=== PATIENT | male | born 1950 | race Caucasian/White ===

== ENCOUNTER 2021-11-14 21:22 | Observation (INO) | payer MEDICARE, OTHER, SELFPAY ==
[2021-11-14 21:24] VITALS: BP 147/75; PULSE 65; RESP 15; TEMP 36.9; O2SAT 85; BMI 41.2
[2021-11-14 21:31] VITALS: BMI 41.2
--- NOTE | 2021-11-14 21:35 | EKG12_ITS ---
Test Reason : DYSRHYTHMIA Blood Pressure : / mmHG Vent. Rate : 060 BPM Atrial Rate : 267 BPM P-R Int : 000 ms QRS Dur : 164 ms QT Int : 506 ms P-R-T Axes : 000 194 093 degrees QTc Int : 506 ms Ventricular-paced rhythm Abnormal ECG Confirmed by YANCI MARQUEZ, SASCHA ([id number]), brands editor YVROSE CLINTON ([id number]) on 11/16/2021 10:46:16 AM Referred By: GABBY Confirmed By:SASCHA PETE MD
--- NOTE | 2021-11-14 22:08 | CT_ITS ---
STUDY: CT BRAIN WITHOUT CONTRAST REASON FOR EXAM: Male, 71 years old. Altered mental status RADIATION DOSAGE (If Supplied By Facility): CTDIvol = ( 44.99 ) mGy, DLP = ( 846.73 ) mGycm TECHNIQUE: Transaxial CT imaging of the brain was performed without administration of intravenous contrast material. Individualized dose optimization techniques were used for this CT. COMPARISON: No relevant priors. FINDINGS: Normal soft tissue structures. Normal calvarium. There is mild cerebral atrophy with widening of the extra-axial spaces and ventricular dilatation. There are areas of decreased attenuation within the white matter tracts of the supratentorial brain, consistent with microvascular disease changes. Normal basal ganglia and thalami. Normal brainstem. There is mild cerebellar atrophy. There is no intracranial hemorrhage. There are no findings of an acute ischemic infarction. Normal visualized paranasal sinuses. CT/Brain/Head without Contrast IMPRESSION: Chronic involutional changes of the brain. Electronically Signed: Zenon Cheney DO at 23:17 EDT ,
--- NOTE | 2021-11-14 22:20 | RAD_ITS ---
STUDY: X-RAY CHEST REASON FOR EXAM: Male, 71 years old. cough TECHNIQUE: Single AP portable view of the chest. COMPARISON: None. FINDINGS: Right lung is clear. There is left lower lobe airspace disease with small effusion. There is mild cardiac enlargement. Normal mediastinum and rajinder. Normal visualized pulmonary arteries. Normal visualized aortic arch and descending thoracic aorta. Left chest wall pacing device Normal visualized thoracic spine. Normal visualized ribs, clavicles, and shoulders. There is no demonstrated abnormality of the visualized soft tissue structures of the upper abdomen. RAD/Chest 1 View (Portable) IMPRESSION: Left lower lobe airspace disease and small effusion Electronically Signed: Zenon Cheney DO at 22:47 EDT ,
[2021-11-14 22:39] LABS: Bacteria 0 SEEN /hpf (None Seen); Mucous, Urine 0 SEEN /hpf (<or=2+); Red Blood Cells-Urine 0 SEEN /hpf (0-5); Squamous Epithelial Cells - UA 0 SEEN /hpf (0-5); White Blood Cells 0 SEEN /hpf (0-5)
[2021-11-14 22:40] LABS: Absolute Lymphocyte Count 0.84 X10^3/uL (0.83-4.51); Absolute Neutrophil Count 6.5 X10^3/uL (2.0-7.7); Basophil# 0.05 X10^3/uL; Basophil% 0.6 % (0-1); Eosinophil# 0.08 X10^3/uL; Eosinophils% 0.9 % (0-5); Hematocrit 31.5 % (40-54); Hemoglobin 9.6 g/dL (13.0-16.5); Lymphocyte # 0.84 X10^3/ul (0.83-4.51); Lymphocyte % 9.9 % (19-41); Mean Corp Hgb Conc 30.5 g/dL (32-36); Mean Corpuscular Hgb 29.5 pg (27.0-32.0); Mean Corpuscular Volume 96.9 fL (80-94); Monocyte# 0.98 X10^3/uL; Monocyte% 11.6 % (0-10); NRBC Flagged by Analyzer 0 % (0-5); Neutrophil % 76.6 % (47-70); Platelet Count 196 K/mm3 (150-450); RBC Distribution Width CV 14.7 % (11.6-14.6); RBC Distribution Width SD 51.9 fl (35.1-43.9); Red Blood Count 3.25 M/mm3 (4.6-6.2); White Blood Count 8.5 K/mm3 (4.4-11.0)
[2021-11-14 22:54] LABS: Amphetamine Urine VISTA NEGATIVE (<1000 ng/mL); Barbiturate Urine VISTA NEGATIVE (< 200 ng/mL); Benzodiazepine Urine VISTA NEGATIVE (< 200 ng/mL); Cocaine Urine VISTA NEGATIVE (< 300 ng/mL); Ecstacy Urine VISTA NEGATIVE (< 500 ng/mL); Methadone Urine VISTA NEGATIVE (< 300 ng/mL); PCP Urine VISTA NEGATIVE (< 25 ng/mL); THC Urine VISTA NEGATIVE (< 50 ng/mL); Vista UDS pH Range 7
[2021-11-14 23:03] LABS: Color, Urine Yellow (Yellow); Glucose, Dipstick Normal (Normal); Ketone-Dipstick Negative (Negative); Leukocyte Esterase-Dipstick 25 /ul (Negative); Nitrite-Dipstick Negative (Negative); Occult Blood-Urine Negative /ul (Negative); Protein-Dipstick 100 mg/dl (Negative); Urine Bilirubin Dipstick Negative (Negative); Urine Clarity Clear (Clear); Urine Urobilinogen 4 mg/dl (Normal)
[2021-11-14 23:08] LABS: AST(SGOT) 32 U/L (15-37); Alanine Aminotransfer ALT/SGPT 15 U/L (16-61); Alkaline Phosphatase 108 U/L (45-117); Anion Gap 4 (5-15); BUN 27 mg/dL (7-18); BUN/Creat Ratio 18.5 RATIO (10-20); Bilirubin, Direct 0.56 mg/dL (0.00-0.30); Calcium,Total 9.7 mg/dL (8.5-10.1); Chloride 95 mmol/L (98-107); Creatinine, Serum 1.46 mg/dL (0.70-1.30); EST Glomerular Filtration Rate 51 mL/min (>60); Est Glom Filt Rate - Afr Amer 61 mL/min (>60); Estimated Creatinine Clearance 51.67 ml/min; Globulin 4.1 g/dL (2.2-4.2); Glucose 115 mg/dL (74-106); Potassium 4.4 mmol/L (3.5-5.1); Protein, Total 7.1 g/dL (6.4-8.2); Sodium Level 141 mmol/L (136-145); Thyroid Stim Hormone (TSH) 1.99 uIU/mL (0.358-3.74)
[2021-11-14 23:12] LABS: Lactic Acid 1.1 mmol/L (0.4-1.9)
[2021-11-14 23:23] VITALS: BP 135/90; PULSE 90; RESP 17; O2SAT 98
[2021-11-14 23:40] LABS: Acetaminophen (Tylenol) Level < 2.0 ug/mL (10.0-30.0); Salicylate < 1.7 mg/dL (2.8-20.0)
[2021-11-15] VITALS (9 sets, daily range): BP systolic 132–176; BP diastolic 67–105; PULSE 60–104; RESP 17–20; TEMP 36.4–37.1; O2SAT 93–98; BMI 40.8
--- NOTE | 2021-11-15 00:52 | EX.ED.DYSGE1 ---
HPI History of Present Illness Chief Complaint: Neuro S/Sx Narrative Narrative: Patient is a 71-year-old male with history of hypertension and diabetes. Reportedly EMS was called by the patient's son because he was just not acting right. The patient denies any fevers or chills or trauma. He denies any new medications or illicit drug use and states he quit drinking roughly 35 years ago. He does state that he has been having urinary frequency and difficulty holding his urine. Therefore with son's concern about altered mental status and possible infectious process he was brought in for evaluation [facility] Medical History (Updated 11/15/21 @ 01:[address] Nic Sheffield MD) Congestive heart failure (CHF) Diabetes Fibromyalgia Hypertension Home Medications allopurinol 300 mg tablet 1 tab PO DAILY gout 11/15/21 [History Last Taken Unknown] gabapentin 300 mg capsule 600 mg PO TID pain 11/15/21 [History Last Taken Unknown] levothyroxine 50 mcg tablet 50 mcg PO DAILY thyroid 11/15/21 [History Last Taken Unknown] metoprolol succinate 25 mg tablet,extended release 24 hr 25 mg PO DAILY blood pressure 11/15/21 [History Last Taken Unknown] modafinil 200 mg tablet 200 mg PO BID narcolepsy 11/15/21 [History Last Taken Unknown] omeprazole 40 mg capsule,delayed release 40 mg PO DAILY acid reflux 11/15/21 [History Last Taken Unknown] torsemide 100 mg tablet 100 mg PO DAILY water pill 11/15/21 [History Last Taken Unknown] warfarin 10 mg tablet 10 mg PO DAILY blood thinner 11/15/21 [History Last Taken Unknown] warfarin 2 mg tablet 2 tab PO DAILY BLOOD CLOTS SHOULDER/LEGS 11/15/21 [History Last Taken Unknown] Allergy/AdvReac Type Severity Reaction Status Date / Time adhesive tape Allergy PT UNSURE Verified 11/14/21 21:29 OF REACTION codeine Allergy PT UNSURE Verified 11/14/21 21:29 OF REACTION Social History Smoking Status: Former smoker ROS ROS ED Constitutional Constitutional ED: Denies chills or fever(s) ENT ENT ED: Denies sore throat Cardiovascular Cardiovascular: Denies chest pain Respiratory/Chest Respiratory/Chest: Denies cough or dyspnea Gastrointestinal Gastrointestinal: Denies abdominal pain, diarrhea, nausea or vomiting Genitourinary Genitourinary ED: Reports urinary frequency; Denies dysuria Musculoskeletal Musculoskeletal: Denies back pain, myalgias or neck pain Integumentary Denies rash Neurologic Neurologic: Denies headache(s) or paresthesias Hematologic/Lymphatic Hematologic/Lymphatic: Reports easy bleeding and easy bruising EXAM Physical Exam Const Vital Signs: 11/14/21 21:24 11/14/21 23:23 Temperature 98.4 F Temperature Source Temporal Pulse Rate 65 90 Respiratory Rate 15 17 Blood Pressure 147/75 H 135/90 H Blood Pressure Mean 99 105 Pulse Ox 85 98 Oxygen Delivery Method Room Air Room Air Positive well nourished, well developed and obese General Appearance ED: well developed Nutritional Appearance: obese HEENT Reports dry mucous membranes HEENT Narrative: No tongue or lip swelling no oral lesions no secondary changes in posterior pharynx to suggest infection Mouth ED: Yes dry mucous membranes Mouth: dry mucous membranes Eyes PERRL and EOMs intact bilaterally General Eye ED: Negative for scleral icterus Neck supple and no JVD Resp normal respiratory effort Resp Narrative: Breath sounds are diminished throughout with diffuse expiratory wheeze but no nasal flaring retractions tachypnea or accessory muscle use Cardio regular rate and regular rhythm Rate: other Other Details: Radial pulses are plus 2 out of 4 bilaterally are equal and symmetric GI non-tender and non-distended GI Narrative: No voluntary guarding or rigidity no pulsatile mass or fluid wave noted Auscultation: normoactive bowel sounds Palpation: soft Extremity Extremity Narrative: Patient has +1 pitting edema to the bilateral lower extremities that is equal and symmetric consistent with his history of heart failure. Negative Homans' sign bilaterally. Neuro oriented x3 and CN's II-XII intact bilaterally Sensorium / Orientation: alert Psych Psych Narrative: Patient has a flat affect Skin Skin Narrative: Skin turgor slightly increased MDM MDM MDM Narrative Medical decision making narrative: Patient was sent in to the ER for reported alteration of mental status. However upon arrival he is awake and alert to person place and time. He does not have any focal neurologic deficit. With this initial complaint from EMS and family as well as the patient reporting difficulty with urination there is concern he is got an infectious process and therefore a basic work-up was obtained with a head CT. Head CT revealed chronic age-related changes without acute bleed. Blood work revealed no clinically significant findings other than his ammonia level is approximately doubled in the upper limit of normal at 59. The patient is able to move his lower legs but he is unable to stand and walk and hold himself up even with assistance. Based on this he is not safe to return home. I discussed with patient that if he cannot walk he will need to be placed in a long term or rehab facility for physical therapy. The patient states he is agreeable to this. Therefore medicine was contacted and they do agree to accept the patient at this time with the possibility of placement based on the fact he has the inability to ambulate. Because of the elevated ammonia level he was given lactulose. The chest x-ray officially questioned a lung infection but the patient does not have a fever or white count and he has not been coughing or complaining of shortness of breath and therefore this is not clinically correlate so I would not start him on antibiotics at this time Lab Data Attestation: I reviewed the patient's lab results. Labs: Laboratory Results - last 24 hr 11/14/21 11/14/21 11/14/21 21:37 21:37 21:37 WBC 8.5 RBC 3.25 L Hgb 9.6 L Hct 31.5 L MCV 96.9 H MCH 29.5 MCHC 30.5 L RDW Std Deviation 51.9 H RDW Coeff of Nash 14.7 H Plt Count 196 MPV 11.0 Immature Gran % (Auto) 0.400 Neut % (Auto) 76.6 H Lymph % (Auto) 9.9 L [place] % (Auto) 11.6 H Eos % (Auto) 0.9 Baso % (Auto) 0.6 Absolute Neuts (auto) 6.5 Absolute Lymphs (auto) 0.84 Nucleated RBC % 0 Sodium 141 Potassium 4.4 Chloride 95 L Carbon Dioxide 42.0 H Anion Gap 4 L BUN 27 H Creatinine 1.46 H Estim Creat Clear Calc 51.67 Est GFR (MDRD) Af Amer 61 Est GFR (MDRD) Non-Af 51 L BUN/Creatinine Ratio 18.5 Glucose 115 H Lactic Acid Calcium 9.7 Total Bilirubin 1.30 H Direct Bilirubin 0.56 H AST 32 ALT 15 L Alkaline Phosphatase 108 Ammonia Total Protein 7.1 Albumin 3.0 L Globulin 4.1 TSH 1.99 Urine Color Urine Clarity Urine pH Ur Specific [place] Urine Protein Urine Glucose (UA) Urine Ketones Urine Occult Blood Urine Nitrite Urine Bilirubin Urine Urobilinogen Ur Leukocyte Esterase Urine RBC Urine WBC Ur Squamous Epith Cells Urine Bacteria Urine Mucus Salicylates < 1.7 L Urine Opiates Screen Urine Methadone Screen Acetaminophen < 2.0 L Ur Barbiturates Screen Ur Phencyclidine Scrn Ur Amphetamines Screen MDMA (Ecstasy) Screen U Benzodiazepines Scrn Urine Cocaine Screen U Cannabinoids Screen Ur Drug Screen Comment Ethyl Alcohol 4.0 11/14/21 11/14/21 11/14/21 22:20 22:20 22:25 WBC RBC Hgb Hct MCV MCH MCHC RDW Std Deviation RDW Coeff of [place] Plt Count MPV Immature Gran % (Auto) Neut % (Auto) Lymph % (Auto) [place] % (Auto) Eos % (Auto) Baso % (Auto) Absolute Neuts (auto) Absolute Lymphs (auto) Nucleated RBC % Sodium Potassium Chloride Carbon Dioxide Anion Gap BUN Creatinine Estim Creat Clear Calc Est GFR (MDRD) Af Amer Est GFR (MDRD) Non-Af BUN/Creatinine Ratio Glucose Lactic Acid 1.1 Calcium Total Bilirubin Direct Bilirubin AST ALT Alkaline Phosphatase Ammonia 59.0 H Total Protein Albumin Globulin TSH Urine Color Urine Clarity Urine pH Ur Specific [place] Urine Protein Urine Glucose (UA) Urine Ketones Urine Occult Blood Urine Nitrite Urine Bilirubin Urine Urobilinogen Ur Leukocyte Esterase Urine RBC Urine WBC Ur Squamous Epith Cells Urine Bacteria Urine Mucus Salicylates Urine Opiates Screen NEGATIVE Urine Methadone Screen NEGATIVE Acetaminophen Ur Barbiturates Screen NEGATIVE Ur Phencyclidine Scrn NEGATIVE Ur Amphetamines Screen NEGATIVE MDMA (Ecstasy) Screen NEGATIVE U Benzodiazepines Scrn NEGATIVE Urine Cocaine Screen NEGATIVE U Cannabinoids Screen NEGATIVE Ur Drug Screen Comment Ethyl Alcohol 11/14/21 22:25 WBC RBC Hgb Hct MCV MCH MCHC RDW Std Deviation RDW Coeff of [place] Plt Count MPV Immature Gran % (Auto) Neut % (Auto) Lymph % (Auto) [place] % (Auto) Eos % (Auto) Baso % (Auto) Absolute Neuts (auto) Absolute Lymphs (auto) Nucleated RBC % Sodium Potassium Chloride Carbon Dioxide Anion Gap BUN Creatinine Estim Creat Clear Calc Est GFR (MDRD) Af Amer Est GFR (MDRD) Non-Af BUN/Creatinine Ratio Glucose Lactic Acid Calcium Total Bilirubin Direct Bilirubin AST ALT Alkaline Phosphatase Ammonia Total Protein Albumin Globulin TSH Urine Color Yellow Urine Clarity Clear Urine pH 8.0 Ur Specific [place] 1.010 Urine Protein 100 H Urine Glucose (UA) Normal Urine Ketones Negative Urine Occult Blood Negative Urine Nitrite Negative Urine Bilirubin Negative Urine Urobilinogen 4 H Ur Leukocyte Esterase 25 H Urine RBC 0 SEEN Urine WBC 0 SEEN Ur Squamous Epith Cells 0 SEEN Urine Bacteria 0 SEEN Urine Mucus 0 SEEN Salicylates Urine Opiates Screen Urine Methadone Screen Acetaminophen Ur Barbiturates Screen Ur Phencyclidine Scrn Ur Amphetamines Screen MDMA (Ecstasy) Screen U Benzodiazepines Scrn Urine Cocaine Screen U Cannabinoids Screen Ur Drug Screen Comment Ethyl Alcohol Radiography Diagnostic Testing: Clinical Impression(s) from Imaging Studies Brain CT 11/14/21 22:08 IMPRESSION: Chronic involutional changes of the brain. Electronically Signed: Zenon Cheney DO at 23:17 EDT Reading Location ID and State: [facility] / [place] Tel , Service support , Chest X-Ray 11/14/21 22:20 IMPRESSION: Left lower lobe airspace disease and small effusion Electronically Signed: Zenon Cheney DO at 22:47 EDT , Chest x-ray as interpreted by the emergency medicine physician reveals a small effusion on the left without acute infiltrate pneumothorax or pleural effusion Discharge Plan Dx/Rx/DC Orders Clinical Impression: Hyperammonemia, Inability to walk Disposition Disposition: Acute Care Hospital [facility] Discharge Date/Time: 11/15/21 01:55
--- NOTE | 2021-11-15 01:00 | HP.PCM_ITS ---
HPI - General General Date of Admission: 11/15/21 Date of Service: 11/15/21 Chief Complaint: Generalized weakness HPI Narrative JHONY VASQUEZ, is a 71 M who presents to the emergency room from home due to worsening debility. Patient has a significant past medical history of congestive heart failure for which she went through rehabilitation in 2020 but subsequently has failed to keep up on his exercises and medical management. Over the past 2 months he has become progressively disabled at home and has been unable to bear weight. The patient does have a past medical history of alcohol abuse. His ammonia level is 60 and he does have a slightly detectable alcohol level despite the patient denying using any alcohol for 30 years. The patient denies chest pain, shortness of breath, fever or chills. He does have some lower extremity discomfort that is chronic. Patient will be admitted for observation and assessment by physical therapy for ambulation in the morning. He will need case management for discharge planning. [facility] Medical History (Updated 11/15/21 @ 01:[address] Nci Sheffield MD) Congestive heart failure (CHF) Diabetes Fibromyalgia Hypertension Home Medications Unobtainable 11/14/21 [History Last Taken Unknown] Allergy/AdvReac Type Severity Reaction Status Date / Time adhesive tape Allergy PT UNSURE Verified 11/14/21 21:29 OF REACTION codeine Allergy PT UNSURE Verified 11/14/21 21:29 OF REACTION Social History Smoking Status: Never smoker ROS Constitutional Constitutional: Denies chills or fever(s) Eyes Eyes: Denies blurry vision ENT HEENT: Denies abnormal hearing Cardiovascular Cardiovascular: Denies chest pain Respiratory/Chest Respiratory/Chest: Denies cough Gastrointestinal Gastrointestinal: Denies abdominal pain Genitourinary Genitourinary: Reports dysuria Musculoskeletal Musculoskeletal: Reports joint swelling and muscle weakness Integumentary Integumentary: Reports jaundice Neurologic Neurologic: Denies abnormal speech Psychiatric Psychiatric: Denies anxiety Vital Signs Vital Signs Vital Signs: 11/14/21 21:24 11/14/21 23:23 Temperature 98.4 F Temperature Source Temporal Pulse Rate 65 90 Respiratory Rate 15 17 Blood Pressure 147/75 H 135/90 H Blood Pressure Mean 99 105 Pulse Ox 85 98 Oxygen Delivery Method Room Air Room Air Weight Weight: 304 lb 0.279 oz Body Mass Index (BMI) 41.2 Physical Exam Const oriented x3 General Appearance: cooperative HEENT normocephalic and head/scalp atraumatic Eyes PERRL and EOMs intact bilaterally Neck no lymphadenopathy Resp normal respiratory effort and normal air movement Cardio regular rate, regular rhythm, S1 normal heart sound and S2 normal heart sound GI normal to inspection, nondistended, normoactive bowel sounds Extremity normal capillary refill Skin General Skin Exam: jaundice Neuro CN's II-XII intact bilaterally Psych cooperative and affect normal Psych Narrative: slow Speech pattern Mood & Affect: Negative for anxious Results Lab / Micro Data Result Diagrams: 11/14/21 21:37 11/14/21 21:37 Labs: Laboratory Results - last 24 hr 11/14/21 21:37: WBC 8.5, RBC 3.25 L, Hgb 9.6 L, Hct 31.5 L, MCV 96.9 H, MCH 29.5, MCHC 30.5 L, RDW Std Deviation 51.9 H, RDW Coeff of Nash 14.7 H, Plt Count 196, MPV 11.0, Immature Gran % (Auto) 0.400, Neut % (Auto) 76.6 H, Lymph % (Auto) 9.9 L, [place] % (Auto) 11.6 H, Eos % (Auto) 0.9, Baso % (Auto) 0.6, Absolute Neuts (auto) 6.5, Absolute Lymphs (auto) 0.84, Nucleated RBC % 0 11/14/21 21:37: Sodium 141, Potassium 4.4, Chloride 95 L, Carbon Dioxide 42.0 H, Anion Gap 4 L, BUN 27 H, Creatinine 1.46 H, Estim Creat Clear Calc 51.67, Est GFR (MDRD) Af Amer 61, Est GFR (MDRD) Non-Af 51 L, BUN/Creatinine Ratio 18.5, Glucose 115 H, Calcium 9.7, Total Bilirubin 1.30 H, Direct Bilirubin 0.56 H, AST 32, ALT 15 L, Alkaline Phosphatase 108, Total Protein 7.1, Albumin 3.0 L, Globulin 4.1, TSH 1.99 11/14/21 21:37: Salicylates < 1.7 L, Acetaminophen < 2.0 L, Ethyl Alcohol 4.0 11/14/21 22:20: Ammonia 59.0 H 11/14/21 22:20: Lactic Acid 1.1 11/14/21 22:25: Urine Opiates Screen NEGATIVE, Urine Methadone Screen NEGATIVE, Ur Barbiturates Screen NEGATIVE, Ur Phencyclidine Scrn NEGATIVE, Ur Amphetamines Screen NEGATIVE, MDMA (Ecstasy) Screen NEGATIVE, U Benzodiazepines Scrn NEGATIVE, Urine Cocaine Screen NEGATIVE, U Cannabinoids Screen NEGATIVE, Ur Drug Screen Comment 11/14/21 22:25: Urine Color Yellow, Urine Clarity Clear, Urine pH 8.0, Ur Specific [place] 1.010, Urine Protein 100 H, Urine Glucose (UA) Normal, Urine Ketones Negative, Urine Occult Blood Negative, Urine Nitrite Negative, Urine Bilirubin Negative, Urine Urobilinogen 4 H, Ur Leukocyte Esterase 25 H, Urine RBC 0 SEEN, Urine WBC 0 SEEN, Ur Squamous Epith Cells 0 SEEN, Urine Bacteria 0 SEEN, Urine Mucus 0 SEEN Micro: Microbiology 11/14/21 22:17 Nasal Secretion SARS-CoV-2 & FLU Antigen (Rapid) - Final Radiology Impression Brain CT 11/14/21 22:08 IMPRESSION: Chronic involutional changes of the brain. Electronically Signed: Zenon Cheney DO at 23:17 EDT Reading Location ID and State: [facility] / [place] Tel , Service support , Chest X-Ray 11/14/21 22:20 IMPRESSION: Left lower lobe airspace disease and small effusion Electronically Signed: Zenon Cheney DO at 22:47 EDT Reading Location ID and State: [facility] / [place] Tel , Service support , Assessment & Plan Assessment/Plan (1) Hyperammonemia: (2) Inability to walk: (3) Hypertension: (4) Diabetes: (5) Congestive heart failure (CHF): PLAN: Plan 1. Inability to ambulate?admit patient to general medical floor, therapeutic mentor apy to evaluate in the morning. Case management to assist with discharge planning 2. Diabetes?continue home medications 3. Congestive heart failure?continue home diuretic 4. Hyperammonemia?initiate lactulose and repeat CMP and ammonia level in the morning 5. DVT prophylaxis?low molecular weight heparin Charges/Coding Visit Charges OBSV E&M: 96016 Initial observation care L2
[2021-11-15] MEDS: Lactulose 20 GM/30 ML UDC PO ×3 (01:08→21:29)
[2021-11-15 05:13] LABS: ALB/GLOB Ratio 0.7 RATIO (0.9-2.4); AST(SGOT) 33 U/L (15-37); Alanine Aminotransfer ALT/SGPT 17 U/L (16-61); Albumin, Serum 2.8 g/dL (3.2-5.0); Alkaline Phosphatase 103 U/L (45-117); Anion Gap 5 (5-15); BUN 27 mg/dL (7-18); BUN/Creat Ratio 18.8 RATIO (10-20); Calcium,Total 9.6 mg/dL (8.5-10.1); Chloride 97 mmol/L (98-107); Creatinine, Serum 1.44 mg/dL (0.70-1.30); EST Glomerular Filtration Rate 52 mL/min (>60); Est Glom Filt Rate - Afr Amer 62 mL/min (>60); Estimated Creatinine Clearance 52.39 ml/min; Glucose 123 mg/dL (74-106); Protein, Total 6.8 g/dL (6.4-8.2); Sodium Level 141 mmol/L (136-145)
--- NOTE | 2021-11-15 07:44 | US_ITS ---
STUDY: ABDOMINAL ULTRASOUND - RIGHT UPPER QUADRANT REASON FOR VISIT: Male, 71 years old elevated ammonia level TECHNIQUE: Ultrasound evaluation of the right upper quadrant was performed with real-time and static gamble-scale imaging. TECHNICAL QUALITY: Adequate. COMPARISON: None. FINDINGS: Liver: The liver is enlarged and measures 21.4 cm. There is increased echogenicity consistent with fatty infiltration. The bile ducts are within normal limits. There is hepatic color flow. The direction of portal flow is hepatopetal. There is no demonstrated mass lesion. Gallbladder: Normal distended gallbladder. The gallbladder wall measures 4 mm. There is a negative sonographic Garcia''s sign. There is no pericholecystic fluid. There are multiple echogenic structures within the gallbladder, consistent with multiple gallstones. Common Bile Duct (C.B.D.): The common bile duct measures 8 mm. Pancreas: There is nonvisualization of the pancreas due to overlying bowel gas. Right Kidney: Normal size of the right kidney. The right kidney measures 10 cm x 5.9cm x 5.2 cm. Normal renal cortex. The right cortex measures 1 cm. There is no demonstrated renal mass or cyst. There is no right hydronephrosis. Small amount of ascites. US/Liver IMPRESSION: Contracted stone filled gallbladder. Thickened gallbladder wall. Hepatomegaly and diffuse fatty infiltration of the liver. Small amount of ascites. Electronically Signed: Oswaldo Mckinnon MD at 10:38 EDT ,
[2021-11-15] MEDS: Enoxaparin 40 MG/0.4 ML Syringe SC (09:01)
[2021-11-15] MEDS: Nystatin Powder 15gm Bottle 1 APPLIC TOPICAL ×2 (09:01→21:29)
[2021-11-15] MEDS: Menthol/Lanolin/Calamine/Znox 113 GM Tube 1 APPLIC TOPICAL ×2 (09:02→21:29)
[2021-11-15] MEDS: Glucerna Shake 120 ML LIQUID PO ×2 (09:06→14:36)
[2021-11-15] MEDS: Ibuprofen 400 MG Tablet PO (09:13)
--- NOTE | 2021-11-15 10:03 | NURSING ---
message left with pt's physician prescribing outside med, Dr. Daniel Turner at [facility] at [phone] requested current home med list be faxed over
[2021-11-15 10:44] LABS: International Normalized Ratio 3.3; Prothrombin Time (Protime)PT. 32.9 SECONDS (11.7-14.9)
[2021-11-15] MEDS: Pantoprazole Sodium 40 MG Tablet PO (11:46)
[2021-11-15] MEDS: Metoprolol(XL)Succ 25 MG Tablet PO (11:46)
[2021-11-15] MEDS: Levothyroxine 50 MCG Tablet PO (11:46)
--- NOTE | 2021-11-15 12:02 | CASEMGMT ---
Social Work SW met with pt and introduced self and role of SW. Assessment completed and discharge plan discussed. PCP: Dr. Turner, [facility] Insurance: Medicare Living Will/HPOA: Pt does not have a living will nor health care POA. SW spoke to pt regarding this and explained that if pt is not able to make own decisions his would be the decision maker. Pt's reji'lang shen is listed as contact and SW explained that she does not have legal authority to make decisions and if he would want this, it is in his best interest to complete HCPOA. Pt expressing understanding but does not want to complete at this time. SW provided pt with rack card and informed he can notify SW if he wants to complete documents. LNOK: Pt's reji's finance Fatoumata Tanner is listed as person to contact Living Arrangements: Pt lives in a 2 story home with a first floor set up and ramp entrance. Pt states he lives with his who had a stroke in 2019 and is unable to care for himself therefore cannot help him. Pt's reji and his fiance also live in the home but the work and when they are working they care for pt's and are not able to care for him. DME: Pt has a walker, cane, wheelchair and grab bars by the commode. Pt does have oxygen through [employer] that he uses at 2L continuous. HHC/SNF: Pt has been to [facility] twice in the last 6 months. Pt also had home health care. Plan: SW spoke to pt regarding discharge plan. Pt states he cannot return home as she cannot bear weight and cannot walk. Pt states he is able to get dressed but cannot get showered. Pt stating he may need to stay in a facility for a while. SW provided pt with list of SNF providers including quality and resource use data and consistent with the patient's preferred geographic region, medical needs and insurance network. SW explained short term rehabilitation and Medicare Benefit and if pt needs to stay longer he will be responsible for payment or can apply for Medicaid if he meets the financial qualifications. Pt then deciding to only stay in rehab for short term with Medicare and that he would like to return to [facility]. mery Richmond/berta sales planning coordinator updated and will make referral. SW will await determination of acceptance. Plan: [facility], pending acceptance BLUE Dutta
--- NOTE | 2021-11-15 12:03 | CASEMGMT ---
Addendum entered by Yi Kiser 11/15/21 14:03: PT/OT notes are available. PT/OT notes have been faxed to [facility]. Yi Kiser Discharge Paper Maker Addendum entered by Yi Kiser 11/15/21 13:44: [facility] called Yi Muniz/c asking for PT/OT notes so [facility] could finish looking at the referral. PT/OT notes are not available at this time. [facility] will finish reviewing referral once PT/OT notes become available. PINA Lindsay has been made aware. Yi Kiser Discharge Paper Maker Addendum entered by Yi Kiser 11/15/21 13:03: Yi Discharge Paper Maker called Aristides at [facility]. Aristides will review the referral and call Yi back. Yi Kiser Discharge Paper Maker Original Note: Discharge Paper Maker Called [facility]. Beds are available. Yi Muniz/berta Stamping Die Try Out Worker faxed over referral will follow up. Yi Kiser Discharge Paper Maker
--- NOTE | 2021-11-15 12:52 | CASEMGMT ---
BECK MILLER in to discuss BLAKE form with patient. BECK MILLER explained BLAKE form, patient voiced understanding. Pt signed form and filed in chart. Pt provided with a copy of signed BLAKE form. Patient had no further questions or concerns at this time. Pt states he has oxygen through [employer] at home at 2L cont and he has portable tanks. BCEK MILLER to verify.
[2021-11-15] MEDS: Torsemide 100 MG Tablet PO (14:36)
[2021-11-15] MEDS: Gabapentin 300 MG Capsule 600 MG PO ×2 (14:36→21:29)
--- NOTE | 2021-11-15 14:54 | NURSING ---
asked by Primary Rn to restart IV that came out. introduced myself to patient and here for IV restart. Pt refused restart at this time stating im not getting any drips through them Dr. Jeffers informed of patient's refusal.
--- NOTE | 2021-11-15 15:03 | CASEMGMT ---
Discharge Party Plan Sales Unit Advisor Susan from [facility] called. Susan says length of stay normally at [facility] is 7-10 days. From the notes and evaluations it looks like patient is going to need more than that. Susan stated it would probably be easier to find a facility that can take him longer as it looks like he might end up needing to be a filleter resident at some point. Susan was going to have [facility] PT/OT look at referral and follow back up with Yi. PINA Lindsay has been notified and was going to get another option for SNF. Yi Kiser Discharge Party Plan Sales Unit Advisor
--- NOTE | 2021-11-15 15:24 | CASEMGMT ---
Social Work SW met with pt and informed that [facility] will only allow pt to be there 7-10 days. SW discussed with pt that he would possibly benefit from a SNF that will allow pt a longer period of rehab. Pt is agreeable and reviewed provided SNF lists. Pt preferred provider is [facility]. Yi, discharge assistant nurse manager notified and to send referral. [facility], pending acceptance BLUE Dutta
--- NOTE | 2021-11-15 16:51 | CASEMGMT ---
Addendum entered by Yi Kiser 11/16/21 08:48: Yi called [facility] and spoke to janna. Janna never got the referral and asked Yi to send it via email. Yi recent the referral via email. Yi Kiser Discharge Customer Service Cashier Original Note: Discharge Customer Service Cashier Yi D/c [employer]er faxed over referral to [facility]. Yi Kiser Discharge Customer Service Cashier
--- NOTE | 2021-11-15 17:44 | PCM.HOSP.N ---
Hospitalist Note Patient was seen and examined today, he has agreed to go to an extended care facility for short-term rehab services, we are attempting to place the patient but have not found a retirement that will take him as of yet. Patient's medications were reconciled by myself today, he is taking methadone on a chronic basis. Patient's ammonia level was elevated on admission, I ordered a liver ultrasound on the patient today, it shows a contracted stone filled gallbladder with thickened gallbladder wall, hepatomegaly, and diffuse fatty infiltration of the liver. There was a small amount of ascites noted to be present. Patient is alert at this time and appropriate. Continue present medications with PT and OT to see the patient.
[2021-11-15] MEDS: Methadone 10 MG Tablet PO (21:29)
[2021-11-15 23:22] LABS: Bedside Glucose 120 mg/dL (74-106)
[2021-11-16 03:20] VITALS: BP 134/64; PULSE 57; RESP 18; TEMP 37.3; O2SAT 96
[2021-11-16] MEDS: Gabapentin 300 MG Capsule 600 MG PO ×2 (04:33→15:17)
[2021-11-16] MEDS: Levothyroxine 50 MCG Tablet PO (04:33)
[2021-11-16] MEDS: Methadone 10 MG Tablet PO ×2 (04:33→15:17)
[2021-11-16] MEDS: Enoxaparin 40 MG/0.4 ML Syringe SC (09:27)
[2021-11-16] MEDS: Menthol/Lanolin/Calamine/Znox 113 GM Tube 1 APPLIC TOPICAL (09:27)
[2021-11-16] MEDS: Nystatin Powder 15gm Bottle 1 APPLIC TOPICAL (09:27)
[2021-11-16] MEDS: Lactulose 20 GM/30 ML UDC PO (09:27)
[2021-11-16] MEDS: Torsemide 100 MG Tablet PO (09:27)
[2021-11-16 09:28] VITALS: PULSE 65
[2021-11-16] MEDS: Pantoprazole Sodium 40 MG Tablet PO (09:28)
[2021-11-16] MEDS: Metoprolol(XL)Succ 25 MG Tablet PO (09:28)
[2021-11-16 09:30] VITALS: BP 132/82; PULSE 65; RESP 18; TEMP 37; O2SAT 98
--- NOTE | 2021-11-16 13:07 | CASEMGMT ---
Discharge Qa Software Tester Janna from [facility] has accepted patient. Patient can go when medically ready. PINA Lindsay has been notified. Yi Kiser Discharge Qa Software Tester
--- NOTE | 2021-11-16 13:25 | PCM.TXEXTCAR ---
Diet Diet Order/Speech Therapy: 11/15/21 14:48 Diet: Consistent Carb - Calorie Controlled Food consistency:: Regular Liquid Consistency:: Regular/Thin Dietary Modifications:: Cardiac / Heart Healthy Is pt able to select menu?: Yes How many daily calories?: 2000 calorie Routine Orders/Code Status O2 Liters per Minute: 2 O2 Frequency: Continuous Keep PO Greater than or Equal to (%): 90 Routine Lab Work: INR (on 11/18/21) Code Status: Full Code Therapies Weight Bearing: Full weight bearing Physical Therapy: Eval and Treat Occupational Therapy: Eval and Treat Problem/Diagnosis (1) Hyperammonemia: Status: Acute Code(s): E72.20 - Disorder of urea cycle metabolism, unspecified Comment: patient does not have a diagnosis of cirrhosis, ultrasound showed fatty liver disease (2) Inability to walk: Status: Acute Code(s): R26.2 - Difficulty in walking, not elsewhere classified (3) Hypertension: Status: Chronic Code(s): I10 - Essential (primary) hypertension (4) Diabetes: Status: Chronic Code(s): E11.9 - Type 2 diabetes mellitus without complications (5) Congestive heart failure (CHF): Status: Chronic Code(s): I50.9 - Heart failure, unspecified (6) Chronic pain: Status: Chronic Code(s): G89.29 - Other chronic pain (7) Narcolepsy: Status: Chronic Code(s): G47.419 - Narcolepsy without cataplexy (8) History of blood clots: Status: Chronic Code(s): Z86.718 - Personal history of other venous thrombosis and embolism (9) Hypothyroid: Status: Chronic Code(s): E03.9 - Hypothyroidism, unspecified Allergies/Procedures Done in Hospital Allergies adhesive tape Allergy (Verified 11/14/21 21:29) PT UNSURE OF REACTION codeine Allergy (Verified 11/14/21 21:29) PT UNSURE OF REACTION Procedures: None Type of Care/Length of Stay Estimated LOS: Convalescent Care Less Than 30 days Type of Care Needed: Skilled Rehab Potential: Good Prognosis: Good Additional Orders/Day of Discharge Day of Discharge: 11/16/21 Dietary and Speech Recommendations Dietitian Recommendations/Changes: Recommend 2000kcal Carb controlled, Cardiac diet Discharge Plan Admission Admit Date/Time: 11/15/21 01:07 Primary Reason for Your Visit: debility Attending Provider: Taurus Jeffers Primary Care Provider: Daniel Turner Consulting Providers: Nic Sheffield Instructions Additional Instructions / Restrictions: fingerstick blood sugars ACQHS-coverage with Humalog SQ: 200-250: 5 units, 251-300: 8 units, 301-350: 12 units, 351-400: 15 units Discharge Orders/Prescriptions Prescriptions: New methadone 10 mg Tablet 10 mg PO Q8 5 Days Qty: 15 0RF modafinil 200 mg Tablet 200 mg PO BID Qty: 20 0RF menthol-zinc oxide [Calmoseptine] 0.44-20.6 % Ointment 1 applic topical BID Qty: 0 0RF Protocol: *Topical Application Instructions APPLICATION INSTRUCTIONS: buttocks lactulose 20 gram/30 mL Solution 20 g PO BID Qty: 0 0RF nystatin [Nyamyc] 100,000 unit/gram Powder 1 applic topical BID Qty: 0 0RF Protocol: *Topical Application Instructions APPLICATION INSTRUCTIONS: groin, abdominal fold warfarin [Jantoven] 7.5 mg Tablet 7.5 mg PO DINNER Qty: 0 0RF Continued omeprazole 40 mg capsule,delayed release(DR/EC) 40 mg PO DAILY Label Comments: TAKE 1 CAPSULE BY MOUTH ONCE DAILY before eating torsemide 100 mg tablet 100 mg PO DAILY Label Comments: TAKE 1 TABLET BY MOUTH ONCE DAILY levothyroxine 50 mcg tablet 50 mcg PO DAILY Label Comments: TAKE 1 TABLET BY MOUTH DAILY before BREAKFAST gabapentin 300 mg capsule 600 mg PO TID Label Comments: TAKE 2 CAPSULES BY MOUTH THREE TIMES DAILY allopurinol 300 mg tablet 1 tab PO DAILY Label Comments: Take 1 tablet by mouth once daily. metoprolol succinate 25 mg tablet extended release 24 hr 25 mg PO DAILY Label Comments: TAKE 1 TABLET BY MOUTH ONCE DAILY Discontinued warfarin 10 mg tablet 10 mg PO DAILY Label Comments: TAKE 1 TABLET BY MOUTH ONCE DAILY Rx Instructions: . modafinil 200 mg tablet 200 mg PO BID Label Comments: Take 1 tablet by mouth twice daily for 180 days. warfarin 2 mg tablet 2 tab PO DAILY Label Comments: TAKE 2 TABLETS BY MOUTH DAILY or DIRECTED by physician to be taken WITH the additional coumadin methadone 10 mg tablet 10 tab PO Q8 Referrals / Follow Up: Daniel Turner MD [Primary Care Provider] - Care Physician,No Primary [NON-STAFF] - Disposition Disposition (needs filled in before D/C Order can be placed): Care Home Facility
[2021-11-16 14:15] VITALS: O2SAT 94
[2021-11-16 15:30] VITALS: BP 106/67; PULSE 61; RESP 18; TEMP 36.7; O2SAT 98
--- NOTE | 2021-11-16 15:46 | CASEMGMT ---
Social Work Pt has been accepted by [facility] and can be accepted today. Physician updated and pt is ready for discharge. SW met with pt and informed and pt is agreeable to discharge plan. PASRR completed in [facility] and faxed along with orders to [facility]. Transportation arranged with [facility] for 4:00 [employer] via [employer]. Pt, nurse and Janna at [facility] updated on discharge time. With pt permission, phone call to Fatoumata Tanner and kade VM with pt's discharge disposition. Plan: [facility] SNF, skilled level of care BLUE Dutta
--- NOTE | 2021-11-16 19:56 | PCM.DC.SUM ---
Providers Date of Admission: 11/15/21 Date of Discharge: 11/16/21 Primary Care Physician: Dr. Daniel Turner MD Reason For Visit: INABILITY TO WALK, HYPERAMMONEMIA Diagnosis Discharge Diagnosis (1) Hyperammonemia: Status: Acute Code(s): E72.20 - Disorder of urea cycle metabolism, unspecified (2) Inability to walk: Status: Acute Code(s): R26.2 - Difficulty in walking, not elsewhere classified (3) Hypertension: Status: Chronic Code(s): I10 - Essential (primary) hypertension (4) Diabetes: Status: Chronic Code(s): E11.9 - Type 2 diabetes mellitus without complications (5) Congestive heart failure (CHF): Status: Chronic Code(s): I50.9 - Heart failure, unspecified (6) Chronic pain: Status: Chronic Code(s): G89.29 - Other chronic pain (7) Narcolepsy: Status: Chronic Code(s): G47.419 - Narcolepsy without cataplexy (8) History of blood clots: Status: Chronic Code(s): Z86.718 - Personal history of other venous thrombosis and embolism (9) Hypothyroid: Status: Chronic Code(s): E03.9 - Hypothyroidism, unspecified Plan 1. Acute debility-secondary to multiple medical problems #2 essential hypertension #3 type 2 diabetes #4 chronic congestive heart failure-type unknown #5 elevated ammonia level-etiology unclear #6 fatty liver disease #7 ascites-etiology unknown #8 narcolepsy #9 chronic pain syndrome Medications at Discharge Home Medications allopurinol 300 mg tablet 1 tab PO DAILY gout 11/15/21 gabapentin 300 mg capsule 600 mg PO TID pain 11/15/21 levothyroxine 50 mcg tablet 50 mcg PO DAILY thyroid 11/15/21 metoprolol succinate 25 mg tablet,extended release 24 hr 25 mg PO DAILY blood pressure 11/15/21 omeprazole 40 mg capsule,delayed release 40 mg PO DAILY acid reflux 11/15/21 torsemide 100 mg tablet 100 mg PO DAILY water pill 11/15/21 lactulose 20 gram/30 mL oral solution 20 g (30 mL) PO BID #0 mL 11/16/21 menthol 0.44 %-zinc oxide 20.6 % topical ointment (Calmoseptine) 1 applic topical BID #0 grams 11/16/21 methadone 10 mg tablet 10 mg PO Q8 5 days #15 tabs 11/16/21 modafinil 200 mg tablet 200 mg PO BID #20 tabs 11/16/21 nystatin 100,000 unit/gram topical powder (Nyamyc) 1 applic topical BID #0 grams 11/16/21 warfarin 7.5 mg tablet (Jantoven) 7.5 mg PO DINNER #0 tabs 11/16/21 Hospital Course Operations None Procedures None Summary of Care Provided Minutes Spent on Discharge: 30 Hospital Course: This 71-year-old white male was seen in the emergency room at [facility] after being brought in for evaluation of debility and possible altered mental status. On evaluation in the ER, patient was alert and appropriate, he did not have any focal neurological deficits, blood work revealed no clinically significant findings other than an elevated ammonia level at 59. Patient was however debilitated and was not able to ambulate even with assistance. Discussions were carried out with the patient regarding placement in a long-term facility, he consented to this and [facility] he was seen by PT and OT, he underwent an ultrasound of the liver which showed fatty liver, gallstones, and some ascites. On 11/16/2021, patient was seen and examined: On examination he appeared older than his stated age. Vital signs as documented. Skin warm and dry and without overt rashes. Neck without JVD, neck was supple, trachea midline, thyroid was normal. Lungs clear bilaterally, normal air movement was noted. Heart exam notable for regular rhythm, normal sounds and absence of murmurs, rubs or gallops. Abdomen unremarkable and without evidence of organomegaly, masses, or abdominal aortic enlargement. Bowel sounds are present, abdomen is not distended. Extremities nonedematous, no cyanosis was noted, no clubbing was noted. Neuro: Cranial nerves II through XII are grossly intact, patient exhibited deconditioning and lower extremity weakness. Psych: Patient is alert and oriented x3, he does not appear anxious or depressed, he does not appear agitated. On 11/16/2021, patient was seen and examined and felt to be stable for discharge to a local extended care facility for skilled rehab services. Weight / BMI Weight Weight: 136.441 kg Body Mass Index (BMI) 40.8 ABG / Lab / Microbiology Data Result Diagrams: 11/14/21 21:37 11/15/21 03:26 Laboratory: Laboratory Results - last 24 hr 11/15/21 21:26: POC Glucose 120 H Microbiology: Microbiology 11/16/21 13:50 Nasal Secretion SARS-CoV-2 Antigen (Rapid) - Final 11/14/21 22:17 Nasal Secretion SARS-CoV-2 & FLU Antigen (Rapid) - Final Meaningful Use Info Meaningful Use Diagnoses (Choose all that apply): None applicable Discharge Plan Admission Admit Date/Time: 11/15/21 01:07 Primary Reason for Your Visit: debility Attending Provider: Taurus Jeffers Primary Care Provider: Daniel Turner Consulting Providers: Nic Sheffield Instructions Additional Instructions / Restrictions: fingerstick blood sugars ACQHS-coverage with Humalog SQ: 200-250: 5 units, 251-300: 8 units, 301-350: 12 units, 351-400: 15 units Discharge Orders/Prescriptions Prescriptions: New methadone 10 mg Tablet 10 mg PO Q8 5 Days Qty: 15 0RF modafinil 200 mg Tablet 200 mg PO BID Qty: 20 0RF menthol-zinc oxide [Calmoseptine] 0.44-20.6 % Ointment 1 applic topical BID Qty: 0 0RF Protocol: *Topical Application Instructions APPLICATION INSTRUCTIONS: buttocks lactulose 20 gram/30 mL Solution 20 g PO BID Qty: 0 0RF nystatin [Nyamyc] 100,000 unit/gram Powder 1 applic topical BID Qty: 0 0RF Protocol: *Topical Application Instructions APPLICATION INSTRUCTIONS: groin, abdominal fold warfarin [Jantoven] 7.5 mg Tablet 7.5 mg PO DINNER Qty: 0 0RF Continued omeprazole 40 mg capsule,delayed release(DR/EC) 40 mg PO DAILY Label Comments: TAKE 1 CAPSULE BY MOUTH ONCE DAILY before eating torsemide 100 mg tablet 100 mg PO DAILY Label Comments: TAKE 1 TABLET BY MOUTH ONCE DAILY levothyroxine 50 mcg tablet 50 mcg PO DAILY Label Comments: TAKE 1 TABLET BY MOUTH DAILY before BREAKFAST gabapentin 300 mg capsule 600 mg PO TID Label Comments: TAKE 2 CAPSULES BY MOUTH THREE TIMES DAILY allopurinol 300 mg tablet 1 tab PO DAILY Label Comments: Take 1 tablet by mouth once daily. metoprolol succinate 25 mg tablet extended release 24 hr 25 mg PO DAILY Label Comments: TAKE 1 TABLET BY MOUTH ONCE DAILY Discontinued warfarin 10 mg tablet 10 mg PO DAILY Label Comments: TAKE 1 TABLET BY MOUTH ONCE DAILY Rx Instructions: . modafinil 200 mg tablet 200 mg PO BID Label Comments: Take 1 tablet by mouth twice daily for 180 days. warfarin 2 mg tablet 2 tab PO DAILY Label Comments: TAKE 2 TABLETS BY MOUTH DAILY or DIRECTED by physician to be taken WITH the additional coumadin methadone 10 mg tablet 10 tab PO Q8 Referrals / Follow Up: Daniel Turner MD [Primary Care Provider] - Care Physician,No Primary [NON-STAFF] - Disposition Disposition (needs filled in before D/C Order can be placed): [facility] Charges/Coding Visit Charges OBSV E&M: 89997 Observation care discharge
== END 2021-11-16 15:45 | disposition skilled nursing facility (03) ==
LOC: ED 11-15 00:53 → MS3 11-15 04:01
PROVIDERS: Admitting Provider Family Medicine; Emergency Provider Emergency Medicine; PCP Family Medicine; Visit Provider Internal Medicine
DX: E72.20 Disorder of urea cycle metabolism, unspecified (principal); I11.0 Hypertensive heart disease with heart failure; I50.9 Heart failure, unspecified; E11.9 Type 2 diabetes mellitus without complications; R41.82 Altered mental status, unspecified; G89.29 Other chronic pain; R16.0 Hepatomegaly, not elsewhere classified; G47.419 Narcolepsy without cataplexy; K80.20 Calculus of gallbladder without cholecystitis without obstruction; M62.81 Muscle weakness (generalized); E03.9 Hypothyroidism, unspecified; K76.0 Fatty (change of) liver, not elsewhere classified; R18.8 Other ascites; R26.2 Difficulty in walking, not elsewhere classified; Z79.899 Other long term (current) drug therapy; Z79.01 Long term (current) use of anticoagulants; Z79.890 Hormone replacement therapy; M79.7 Fibromyalgia; Z87.891 Personal history of nicotine dependence; Z86.718 Personal history of other venous thrombosis and embolism
CPT/HCPCS: 36415; 70450; 71045; 76705; 80048; 80053; 80076; 80307; 80329; 81001; 82077; 82140; 82962; 83605; 84443; 85025; 85610; 87426; 87428; 93005; 96372; 97162; 97166; 97530; 97535; 99218; 99285; A4216; G0378; G0480